=== PATIENT | male | born 1975 | race African-American/Black ===

== ENCOUNTER 2024-06-05 13:39 | Emergency (ER) | payer SELFPAY ==
[~2024-06-05] VITALS: Ht 172.7 cm; Wt 97.0 kg
[2024-06-05 13:47] VITALS: BP 219/110
[2024-06-05] MEDS ORDERED: PENicillin V POTASSIUM 500 MG/TAB PO ONE (13:55)
[2024-06-05] MEDS ORDERED: HYDROcodone 7.5 MG/Acetaminophen 325 MG/COMBO PO ONE (13:55)
[2024-06-05] MEDS ORDERED: KETOROLAC TROMETHAMINE 30 MG/ML SDV IM ONE (13:55)
[2024-06-05] MEDS ORDERED: LISINOPRIL 20 MG/TAB PO ONE (13:55)
[2024-06-05 14:00] VITALS: BP 209/108
[2024-06-05] MEDS ORDERED: PENICILLN VK500 MG PO (14:03)
[2024-06-05] MEDS ORDERED: TRAMADOL HYDROC50 M1 PO (14:03)
[2024-06-05] MEDS ORDERED: NAPROXEN500 MG PO (14:03)
[2024-06-05 14:24] VITALS: BP 209/108
== END 2024-06-05 14:40 | disposition home or self-care (01) | DRG 159 ==
LOC: ED 13:39
DX: K04.7 Periapical abscess without sinus (principal); S02.5XXA Fracture of tooth (traumatic), initial encounter for closed fracture; I10 Essential (primary) hypertension; X58.XXXA Exposure to other specified factors, initial encounter; T46.4X6A Underdosing of angiotensin-converting-enzyme inhibitors, initial encounter; Z91.128 Patient's intentional underdosing of medication regimen for other reason